=== PATIENT | male | born 1950 | race Caucasian/White ===

== ENCOUNTER 2016-07-11 10:41 | Day surgery (SDC) | payer OTHER ==
--- NOTE | 2016-07-09 14:16 | HP ---
PROCEDURE DATE: 07/11/16 HISTORY OF PRESENT ILLNESS: The patient is a 66 y/o [place] and feels like a little bulge in the right inguinal area. It was felt he had a small inguinal hernia. It was felt he would benefit from repair. PAST MEDICAL HISTORY: He has had some arthritis. CURRENT MEDICATIONS: Meloxicam. ALLERGIES: NKDA. PAST SURGICAL HISTORY: Finger surgery X 2 10 years ago. FAMILY HISTORY: Negative with regards to this problem. SOCIAL HISTORY: Denies smoking. Does use oral tobacco, 1 can q 3 days. No alcohol abuse. REVIEW OF SYSTEMS: 10 systems reviewed per admission assessment. No chest pains or palpitations. He is overweight. Other systems negative or noncontributory other than above and per preadmission questionnaire. Patient did have a fracture and he was in a walking boot. PHYSICAL EXAMINATION: GENERAL: No acute distress. HEENT: Sclerae nonicteric. NECK: No JVD. CHEST: Equal excursion. Nonlabored breathing. CVS: Regular rate and rhythm. ABDOMEN: Soft. Obese. Right inguinal area feels like he possibly got a small right inguinal hernia, may have a lot of cord lipoma as well. Difficult to tell given his body habitus. EXTREMITIES: No significant edema. NEURO: Alert, moving extremities symmetrically. No gross motor deficits noted. IMPRESSION: 1. RIGHT INGUINAL HERNIA. FELT THE PATIENT MIGHT EVEN ADDITIONALLY HAVE AN ENLARGED LYMPH NODE IN THE AREA. FELT THE PATIENT WOULD BENEFIT FROM REPAIR OF RIGHT INGUINAL HERNIA WITH MESH, POSSIBLE LYMPH NODE BIOPSY PENDING OPERATIVE FINDINGS. Risks and benefits explained in detail, but not limited to, bleeding; infection; risk of swelling or firmness of the incision; risk of ingrown hair or suture reaction; risk of if the mesh became infected likely would need removed; general risk of aches, pains, burning, or numbness in lower abdomen, groin, thigh, or scrotal area possibly long-term or chronic in nature; general risks of anesthesia, deep vein thrombosis, pulmonary embolism, or pneumonia or risk of hernia recurrence; possibility should there be an enlarged node there as well excision could have a seroma or lymphocele formation or lymphedema, but not limited to. He also understands that may not improve any aches or pains as the hernia repair is designed to fix the hernia, but doesn't always improve aches or pains and some patients have them aches and pains from any scar incision. He understands and agrees to the planned procedure. Will proceed with outpatient open repair right inguinal hernia with mesh, possible lymph node biopsy if indicated.
[~2016-07-11 10:41] MED LIST: ATROPINE SULFATE 1MG IV ONE; DIPRIVAN 200 MG/20 ML IV ONE; Decadron 4 MG INJ IV ONE; Ephedrine Sulfate 50 MG/ML IV ONE; Epinephrine Preservative Free 1 MG/ML IJ ONE; Lactated Ringers 1,000 ML IV ONE; Naropin 0.5% 30 ML VIAL IJ ONE; PHENYLEPHRINE HCL IV ONE; Pre-Attached Lta Kit TP ONE; Quelicin Fliptop 200 MG/10 ML IV ONE; SUBLIMAZE 100 MCG/2 ML IV ONE; Sensorcaine 0.25% 10 ML ONE; Versed 2 MG/2 ML Injection IV ONE; Zofran 4 MG/2 ML VIAL IV ONE
[2016-07-11] MEDS ORDERED: MEFOXIN 2 GM PREMIX** 50 ML IV ONE (10:53)
[2016-07-11] MEDS ORDERED: Pepcid 20 MG VIAL IV ONE ×2 (10:54→11:14)
[2016-07-11] MEDS ORDERED: BICITRA 30 ML CUP PO ONE (10:54)
[2016-07-11] MEDS ORDERED: Lactated Ringers 1,000 ML IV SCH (11:00)
[2016-07-11] MEDS ORDERED: BICITRA 30 ML CUP ONE (11:13)
[2016-07-11] MEDS ORDERED: CEFAZOLIN 2 GM-D5W BAG** 50 ML IV ONE ×2 (11:14→11:23)
[2016-07-11] MEDS ORDERED: Lactated Ringers 1,000 ML IV ONE ×2 (11:14→12:46)
[2016-07-11] MEDS ORDERED: OFIRMEV 100 ML IV ONE (13:19)
--- NOTE | 2016-07-11 15:47 | OP ---
SURGERY DATE: 07/11/15 SURGERY TIME: 1314 PREOPERATIVE DIAGNOSIS: 1. RIGHT INGUINAL PAIN AND BULGE. QUESTION OF POSSIBLE ADDITIONAL ADENOPATHY WELL RIGHT INGUINAL HERNIA. POSTOPERATIVE DIAGNOSIS: 1. RIGHT INGUINAL HERNIA. 2. SMALL CORD LIPOMA. 3. RIGHT INGUINAL ADENOPATHY. PROCEDURE: 1. Open repair right inguinal hernia with mesh. 2. Excision cord lipoma. 3. Excisional biopsy right inguinal adenopathy. SURGEON: Dr. Sawyer Chan. ANESTHESIA: General. ESTIMATED BLOOD LOSS: Minimal. INDICATIONS: As noted above. Risks and benefits explained in detail, but not limited to. Consent obtained. DESCRIPTION OF PROCEDURE AND FINDINGS: The patient was taken to the OR. General anesthesia was induced. The groin area, abdomen, and thigh were prepped and draped in the usual sterile fashion. Site had been confirmed with the patient in the pre-op holding area and marked. Transverse incision made. Dissection carried down through the large amount of adipose tissue ligating small epigastric veins. Dissection carried down through the large amount of adipose tissue down through the external oblique. Split in the direction with its fibers towards the external ring. Cord was gently mobilized up off the pubic tubercle with a Marky drain. Cremasteric fibers carefully carefully protecting the visible ilioinguinal/iliohypogastric nerves. It was evident that the patient had a small cord lipoma out laterally. This was carefully isolated away from the cord, high ligated with Vicryl suture ligature and passed off. There did not appear to be an indirect hernia sac. He did however have a direct hernia component. This was imbricated down with interrupted 0 PDS. Once this was accomplished, felt he would benefit from mesh repair. 2 X 4 piece of mesh cut with appropriate keyhole, cut to the appropriate dimension. Secured to the fascia overlying the pubic tubercle with 0 Prolene, run along Song's ligament and showing portion of the inguinal ligament laterally passed the internal ring with 0 Prolene. 0 Prolene used to transfix the mesh to the rectus fascia medially with 0 Vicryl in interrupted fashion. 0 Vicryl used to transfix it to the aponeurosis of internal oblique superiorly avoiding the visible branch of the iliohypogastric nerve. The tails of the mesh were tacked together lateral with 0 Prolene. The new internal ring was felt to be not too tight. The mesh was nice and flat in a tension free manner. Irrigation accomplished. Good hemostasis noted. At this point, attention was then turned where the other palpable nodule was noted just below the inguinal crease. This appeared to be adenopathy. It was felt it warranted removing per lymph node protocol as we do at the other hospitals we work at. Was carefully dissected free with small hemostats ligating the small lymphatics and blood vessels going into and out of the node. It was carefully passed off. It was to be sent for lymph node protocol to be evaluated per protocol for path, for culture, for cytology, for possible flow cytometry if the pathologist felt indicated which is how we take out other lymph nodes at other facilities. Lab is supposed to verify this with the pathologist. At this point, good hemostasis was noted. External oblique closed with 0 Vicryl. Beverly's closed with 3-0 Vicryl. A 7 flat VIRAJ drain had been placed in the lymph node biopsy site to reduce the risk of lymphocele or seroma formation out through an inferior stab wound. Secured with PDS suture and placed to bulb suction. After the external oblique closed with 0 Vicryl, Beverly's closed with 3-0 Vicryl. Subq closed with 3-0 Vicryl. Skin closed with 4-0 Vicryl. Steri-strips and sterile dressing applied. 0.25% Marcaine local had been injected along each skin incision and fascial defect, back towards the origin of the inguinal nerves, back towards the AIS, and along the drain area. Patient tolerated the procedure well. There were no immediate complications. Findings were discussed with the family out in the waiting area.
[2016-07-11] MEDS ORDERED: MORPHINE SULFATE 10 MG/ML ONE (15:54)
[2016-07-11] MEDS ORDERED: NORCO 5/325 MG PO PRN (16:22)
[2016-07-11 17:06] VITALS: BP 128/77; PULSE 89; O2SAT 94
== END 2016-07-11 17:20 | disposition home or self-care (01) ==
LOC: SDC 10:41
PROVIDERS: ATTEND Surgery
PROC: 0YU50JZ Supplement Right Inguinal Region with Synthetic Substitute, Open Approach (ICD-10-PCS; principal; 2016-07-11)
PROC: 0VBF0ZX Excision of Right Spermatic Cord, Open Approach, Diagnostic (ICD-10-PCS; 2016-07-11)
PROC: 07BH0ZX Excision of Right Inguinal Lymphatic, Open Approach, Diagnostic (ICD-10-PCS; 2016-07-11)
DX: K40.90 Unilateral inguinal hernia, without obstruction or gangrene, not specified as recurrent (principal); D17.6 Benign lipomatous neoplasm of spermatic cord; R59.0 Localized enlarged lymph nodes
CPT/HCPCS: 00830; 36415; 64425; C1781; J0171; J0330; J0461; J0690; J1100; J2250; J2270; J2370; J2405; J2704; J2795; J3010

== ENCOUNTER 2019-03-17 11:35 | Emergency (ER) | payer MEDICARE, OTHER ==
[2019-03-17 11:51] VITALS: BP 134/95; PULSE 93; O2SAT 97
--- NOTE | 2019-03-17 12:16 | ERPHSYRPT ---
- History of Present Illness Time Seen by Provider: 03/17/19 12:13 Source: patient Exam Limitations: no limitations Patient Subjective Stated Complaint: Pt went to see emily Huston on Monday and had an x-ray done of his left foot, told that he had a chip broken in his foot and was given a boot to wear, next day his foot began swelling and turning red and there is a white spot in the middle that resembles a bug bite Triage Nursing Assessment: Pt brought in to the ER via a wheelchair, states that he has been elevating his leg the majority of time, reports that the pain began going up his leg today, vitals wnl, rates pain 9/10, pulses normal Physician History: Patient is 69 years old male went to see Nurse practitioner on Monday and had an x-ray done of his left foot, told that he had a chip broken in his foot and was given a boot to wear, next day his foot began swelling and turning red and there is a white spot in the middle Method of Injury: unknown Occurred: last week Quality: constant Severity of Pain-Max: moderate Severity of Pain-Current: moderate Lower Extremities Pain: foot: left, ankle: left Modifying Factors: Improves With: nothing Associated Symptoms: unable to bear weight Allergies/Adverse Reactions: No Known Drug Allergies Allergy (Verified 03/17/19 11:51) - Review of Systems Constitutional: No Fever, No Chills Eyes: No Symptoms Ears, Nose, & Throat: No Symptoms Respiratory: No Cough, No Dyspnea Cardiac: No Chest Pain, No Edema, No Syncope Abdominal/Gastrointestinal: No Abdominal Pain, No Nausea, No Vomiting, No Diarrhea Genitourinary Symptoms: No Dysuria Musculoskeletal: Joint Redness, Joint Pain, Joint Swelling, No Back Pain, No Neck Pain Skin: No Rash Neurological: No Dizziness, No Focal Weakness, No Sensory Changes Psychological: No Symptoms Endocrine: No Symptoms All Other Systems: Reviewed and Negative - Past Medical History Pertinent Past Medical History: No Neurological History: No Pertinent History ENT History: No Pertinent History Cardiac History: No Pertinent History Respiratory History: No Pertinent History Endocrine Medical History: No Pertinent History Musculoskeletal History: Fractures GI Medical History: Hernia History: No Pertinent History Psycho-Social History: No Pertinent History Male Reproductive Disorders: No Pertinent History Other Medical History: Pt states he has a broken right foot and he has had a needle stuck in it for the last 42 years - Past Surgical History Past Surgical History: Yes Neuro Surgical History: No Pertinent History Cardiac: No Pertinent History Respiratory: No Pertinent History Gastrointestinal: No Pertinent History Genitourinary: No Pertinent History Musculoskeletal: No Pertinent History, Other Male Surgical History: No Pertinent History Other Surgical History: pt states he had hand surgery - Social History Smoking Status: Never smoker Exposure to second hand smoke: No Drug Use: none Patient Lives Alone: No - Nursing Vital Signs Nursing Vital Signs: Initial Vital Signs Temperature 99.6 F 03/17/19 11:42 Pulse Rate 93 H 03/17/19 11:42 Blood Pressure 134/95 03/17/19 11:42 O2 Sat by Pulse Oximetry 97 03/17/19 11:42 Pain Scale Pain Intensity 9 - Physical Exam General Appearance: alert Eyes, Ears, Nose, Throat Exam: moist mucous membranes Neck Exam: non-tender, supple Cardiovascular/Respiratory Exam: chest non-tender, normal breath sounds, regular rate/rhythm, no respiratory distress Gastrointestinal/Abdominal Exam: non-tender, guarding Back Exam: normal inspection, No vertebral tenderness Ankle Exam: left ankle: limited range of motion, pain, soft tissue tenderness, swelling Foot Exam: left foot: limited range of motion, pain, soft tissue tenderness, swelling Neuro/Tendon Exam: normal sensation, normal motor functions Mental Status Exam: alert, oriented x 3, cooperative Skin Exam: normal color, warm, dry SpO2: 97 - Course Nursing assessment & vital signs reviewed: Yes - Radiology Exams Left Ankle X-ray Interpretation: Reviewed by me (no fracture) Left Foot X-ray Interpretation: Reviewed by me (no fracture) Ordered Tests: Active Orders 24 hr Category Date Time Status ANKLE (3 VIEWS) Stat Exams 03/17/19 12:20 Taken FOOT (MINIMUM 3 VIEWS) Stat Exams 03/17/19 12:03 Taken BMP Stat Lab 03/17/19 12:20 Completed CBC W DIFF Stat Lab 03/17/19 12:20 Completed Uric Acid Stat Lab 03/17/19 12:20 Completed Medication Summary Generic Name Dose Route Start Last Admin Trade Name Freq PRN Reason Stop Dose Admin Ceftriaxone Sodium 1,000 mg 03/17/19 12:57 Rocephin 1000 Mg Inj IM 03/17/19 12:58 STAT ONE Discontinued Medications Generic Name Dose Route Start Last Admin Trade Name Freq PRN Reason Stop Dose Admin Ketorolac Tromethamine 60 mg 03/17/19 12:54 Toradol 30 Mg Injection IM 03/17/19 12:55 STAT ONE Lab/Rad Data: Laboratory Result Diagrams 03/17/19 12:20 03/17/19 12:20 Laboratory Results 03/17/19 03/17/19 03/17/19 Range/Units 12:20 12:20 12:20 WBC 9.9 (4.0-10.5) K/mm3 RBC 4.25 (4.1-5.6) M/mm3 Hgb 13.4 (12.5-18.0) gm/dl Hct 40.8 L (42-50) % MCV 96.0 (78-100) fl MCH 31.5 (26-32) pg MCHC 32.8 (32-36) g/dl RDW 13.1 (11.5-14.0) % Plt Count 245 (150-450) K/mm3 MPV 9.7 H (6-9.5) fl Gran % 66.7 H (36.0-66.0) % Eos # (Auto) 0.05 (0-0.5) Absolute Lymphs (auto) 2.13 (1.0-4.6) Absolute Monos (auto) 1.09 (0.0-1.3) Lymphocytes % 21.5 L (24.0-44.0) % Monocytes % 11.0 (0.0-12.0) % Eosinophils % 0.5 (0.00-5.0) % Basophils % 0.3 (0.0-0.4) % Absolute Granulocytes 6.61 (1.4-6.9) Basophils # 0.03 (0-0.4) Sodium 139 (137-145) mmol/L Potassium 4.8 (3.5-5.1) mmol/L Chloride 103 (98-107) mmol/L Carbon Dioxide 25 (22-30) mmol/L Anion Gap 15.9 H (5-15) MEQ/L BUN 19 (9-20) mg/dL Creatinine 1.07 (0.66-1.25) mg/dL Estimated GFR > 60.0 ML/MIN Glucose 103 (74-106) mg/dL Uric Acid 5.6 (3.5-7.2) mg/dL Calcium 10.0 (8.4-10.2) mg/dL - Progress Progress: unchanged Counseled pt/family regarding: lab results, diagnosis, need for follow-up, rad results - Departure Departure Disposition: Home Clinical Impression: Cellulitis and abscess of foot Condition: Stable Critical Care Time: No Referrals: DOCTOR,NO FAMILY [Primary Care Provider] - EMILY HUSTON 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 The patient was counseled regarding Diagnosis,Lab results, Imaging studies, need for follow up and when to return to the Emergency Room. Prescriptions given: Discharge Note I have spoken with the patient and/or caregivers. I have explained the patient' s condition, diagnosis and treatment plan based on the information available to me at this time. I have answered the patient's and/or caregiver's questions and addressed any concerns. The patient and/or caregivers have as good understanding of the patient's diagnosis, condition and treatment plan as can be expected at this point. The vital signs have been stable. The patient's condition is stable and appropriate for discharge from the emergency department. The patient will pursue further outpatient evaluation with the primary care physician or other designated or consulting physician as outlined in the discharge instructions. The patient and/or caregivers are agreeable to this plan of care and follow-up instructions have been explained in detail. The patient and/or caregivers have received these instruction. The patient/and or caregivers are aware that any significant change in condition or worsening of symptoms should prompt an immediate return to this or the closest emergency department or call 911. Prescriptions: Cephalexin Mh 500 mg [Keflex 500 mg] 500 mg PO Q6H #40 capsule Naproxen 375 mg [Naprosyn 375 mg] 375 mg PO Q8H #30 tablet
[2019-03-17 12:41] LABS: BASOPHIL % 0.3 % (0.0-0.4); Basophil (Absolute #) 0.03 (0-0.4); Eosinophil % 0.5 % (0.00-5.0); Eosinophil (Absolute #) 0.05 (0-0.5); Granulocyte Absolute (ANC) 6.61 (1.4-6.9); Granulocytes % 66.7 % (36.0-66.0); Hematocrit 40.8 % (42-50); Hemoglobin 13.4 gm/dl (12.5-18.0); Lymphocyte (Absolute #) 2.13 (1.0-4.6); Lymphocytes % 21.5 % (24.0-44.0); Mean Corpuscular Hemoglobin 31.5 pg (26-32); Mean Corpuscular Hgb Concent. 32.8 g/dl (32-36); Mean Platelet Volume 9.7 fl (6-9.5); Monocyte (Absolute #) 1.09 (0.0-1.3); Platelet Count 245 K/mm3 (150-450); Red Blood Count 4.25 M/mm3 (4.1-5.6); Red Cell Distribution Width 13.1 % (11.5-14.0); White Blood Count 9.9 K/mm3 (4.0-10.5)
[2019-03-17 12:48] LABS: ANION GAP 15.9 MEQ/L (5-15); BLOOD UREA NITROGEN 19 mg/dL (9-20); CHLORIDE 103 mmol/L (98-107); Carbon Dioxide 25 mmol/L (22-30); Creatinine 1 1.07 mg/dL (0.66-1.25); Glucose 103 mg/dL (74-106); Potassium 4.8 mmol/L (3.5-5.1); SODIUM 139 mmol/L (137-145)
[2019-03-17] MEDS ORDERED: TORAdol 30 mg Injection IM ONE (12:54)
[2019-03-17] MEDS ORDERED: Rocephin 1000 MG INJ IM ONE (12:57)
[2019-03-17] MEDS ORDERED: TORAdol 30 mg Injection ONE (13:02)
[2019-03-17] MEDS ORDERED: Rocephin 1000 MG INJ ONE (13:02)
--- NOTE | 2019-03-17 21:46 | XRAY ---
Indication: Pain and swelling. Comparison: March 13, 2019. 3 nonweightbearing views of the left foot unchanged again demonstrating tiny cuboid accessory ossicles, tiny plantar heel spur, and tiny calcifications adjacent to the lateral malleolus. No new/acute findings.
--- NOTE | 2019-03-17 21:49 | XRAY ---
Indication: Pain and swelling. Comparison: November 01, 2006. 3 views of the left ankle again demonstrates small round lateral malleolus tip heterotopic ossification, plantar heel spur, cuboid accessory ossicles, and posterior vascular calcifications. New punctate ossifications adjacent to the lateral malleolus/talus either degenerative versus old injury. Remaining ankle unremarkable.
== END 2019-03-17 13:34 | disposition home or self-care (01) ==
LOC: ED 11:35
DX: L03.116 Cellulitis of left lower limb (principal); L02.612 Cutaneous abscess of left foot
CPT/HCPCS: 36415; 73610; 73630; 80048; 84550; 85025; 96372; 99284; J0696; J1885

== ENCOUNTER 2021-07-20 06:03 | Day surgery (SDC) | payer MEDICARE ==
[2021-07-20] MEDS ORDERED: Lactated Ringers 1,000 ML IV SCH (06:30)
[2021-07-20] MEDS ORDERED: DIPRIVAN 200 MG/20 ML IV ONE ×2 (07:18→08:11)
[2021-07-20] MEDS ORDERED: Versed 2 MG/2 ML Injection ONE (07:18)
[2021-07-20] MEDS ORDERED: PHENYLEPHRINE HCL ONE (08:11)
[2021-07-20] MEDS ORDERED: DUONEB 0.5-3 MG/3 ml Neb IH ONE ×2 (08:37→09:03)
[2021-07-20 09:28] VITALS: BP 107/92; PULSE 94; O2SAT 98
--- NOTE | 2021-07-20 10:15 | OP ---
SURGERY DATE/TIME: 07/20/2021 0759 PREOPERATIVE DIAGNOSIS: Positive Cologuard. POSTOPERATIVE DIAGNOSIS: Normal colon. PROCEDURE: Colonoscopy. SURGEON: Dr. Das. ANESTHESIA: MAC. Medications given by anesthesia department. HISTORY: The patient is a 71-year-old white male patient presenting now for positive Cologuard test. He reports he had a negative test three years ago. He has never had a colonoscopy. The patient is felt to need to have endoscopic evaluation. He was appraised of the risks of the procedure including the risk of perforation, phlebitis, untoward reaction to medication, bleeding and missed lesions. The patient verbalized his understanding and desired to have the procedure performed. DESCRIPTION OF PROCEDURE: The patient was given the medications by the anesthesia department. He had continuous pulse oximetry, ECG monitoring, intermittent blood pressure monitoring during the examination. When we placed the patient on the monitor it was noted the patient was in atrial fibrillation but the rate was controlled with a pacemaker and known history of atrial fibrillation previous to this. The patient was placed in left lateral decubitus position. Digital rectal examination was performed and revealed normal anal sphincter tone, no masses and normal prostate. The flexible Olympus pediatric colonoscope was used to intubate the rectum. A view of the colon was developed sequentially to the cecum. Upon insertion and withdrawal, including a retroflex view in the rectum, no mucosal lesions were encountered. The scope was removed from the patient who tolerated the procedure well and was sent back to OP recovery where he received 12 lead EKG to confirm the atrial fibrillation. We will place him on Eliquis at 5 mg b.i.d. for his risk of stroke due to the atrial fibrillation. He will return to primary care provider or I will follow him in the office in one week to continue his work up from the cardiac standpoint and negative colonoscopy otherwise noted the prep was noted to be fair to poor.
== END 2021-07-20 09:40 | disposition home or self-care (01) ==
LOC: SDC 06:03
PROVIDERS: ATTEND Family Medicine
DX: R19.5 Other fecal abnormalities (principal); I48.91 Unspecified atrial fibrillation
CPT/HCPCS: 93005; 94640; J2250; J2370; J2704; A9270-GY